=== PATIENT | male | born 1975 | race Caucasian/White ===

== ENCOUNTER 2021-01-12 22:27 | Emergency (ER) | payer BC ==
[2021-01-12] MEDS: Alum Hydroxide/Mag Hydroxide 15 ML, Lidocaine 2% 15 ML PO ONE ×2 (22:56)
[2021-01-12 23:36] VITALS: BP 128/83; PULSE 68
--- NOTE | 2021-01-12 23:37 | EDM.PDOC ---
ED HPI GENERAL MEDICAL PROBLEM - General Chief Complaint: Chest Pain Stated Complaint: chest pain/Epigastric pain Time Seen by Provider: 01/12/21 22:45 Source of Information: Reports: Patient, Family History Limitations: Reports: No Limitations - History of Present Illness INITIAL COMMENTS - FREE TEXT/NARRATIVE: Patient presented to the ED because of ches pain and epigastric pain which started at 0900 today. The pain is sharp and burning,5/10. there is no nausea or vomiting. Denies any fever, chills, cough or cold symptoms. 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 Middle Chest Pain Score (Numeric/FACES): 5 - Related Data Allergies Allergy/AdvReac Type Severity Reaction Status Date / Time No Known Allergies Allergy Verified 01/12/21 22:52 Home Meds: Home Meds Citalopram [Citalopram HBr] 20 mg PO DAILY 08/28/14 [History] Calcium Carb/Magnesium Hydrox [Rolaids Chewable Tablet] 1 each PO ASDIRECTED PRN 07/01/15 [History] Calcium Carbonate/Vitamin D3 [Calcium 600 + D Tablet] 1 each PO DAILY 07/01/15 [History] Multivitamin [Multivitamins] 1 each PO DAILY 07/01/15 [History] Vitamin B Complex 1 each PO DAILY 07/01/15 [History] Past Medical History Other Musculoskeletal History: FX TIBIA ET FIBULA 08/2014 Psychiatric History: Reports: Depression Other Dermatologic History: INFECTED INCISIONAL AREA OF LEFT LEG. - Past Surgical History Other Musculoskeletal Surgeries/Procedures:: PLATES ET SCREWS Social & Family History - Tobacco Use Tobacco Use Status *Q: Current Every Day Tobacco User Years of Tobacco use: 30 Packs/Tins Daily: 0.5 - Caffeine Use Caffeine Use: Reports: Coffee, Soda - Recreational Drug Use Recreational Drug Use: No ED ROS GENERAL - Review of Systems Review Of Systems: See Below Constitutional: Reports: No Symptoms HEENT: Reports: No Symptoms Respiratory: Reports: No Symptoms Cardiovascular: Reports: Chest Pain Endocrine: Reports: No Symptoms GI/Abdominal: Reports: Abdominal Pain : Reports: No Symptoms Musculoskeletal: Reports: No Symptoms Skin: Reports: No Symptoms Neurological: Reports: No Symptoms Psychiatric: Reports: No Symptoms ED EXAM, GI/ABD - Physical Exam Exam: See Below Exam Limited By: No Limitations General Appearance: Alert, No Apparent Distress Ears: Normal External Exam, Normal Canal Nose: Normal Inspection, Normal Mucosa, No Blood Throat/Mouth: Normal Inspection, Normal Lips Head: Atraumatic, Normocephalic Neck: Normal Inspection, Supple, Non-Tender, Full Range of Motion Respiratory/Chest: No Respiratory Distress, Lungs Clear, Normal Breath Sounds, No Accessory Muscle Use, Chest Non-Tender Cardiovascular: Normal Peripheral Pulses, Regular Rate, Rhythm, No Edema, No Gallop, No JVD, No Murmur, No Rub GI/Abdominal Exam: Normal Bowel Sounds, Soft, No Organomegaly, No Distention, No Abnormal Bruit, No Mass, Other (epigastric tenderness) Back Exam: Normal Inspection, Full Range of Motion Neurological: Alert, Oriented, CN II-XII Intact, Normal Cognition, Normal Gait, Normal Reflexes #1 Interpretation EKG Date: 01/12/21 Time: 22:30 Rhythm: NSR Rate (Beats/Min): 64 [place]: Normal P-Wave: Present QRS: Normal ST-T: Normal QT: Normal Comparison: NA - No Prior EKG EKG Interpretation Comments: NSR No acute changes Course - Vital Signs Text/Narrative:: Labs/EKG result was reviewed with andreient and his Last Recorded V/S: Last Vital Signs Temp 36.7 C 01/12/21 22:40 Pulse 68 01/12/21 23:11 Resp 18 01/12/21 22:41 BP 128/83 01/12/21 23:11 Pulse Ox 97 01/12/21 22:41 - Orders/Labs/Meds Orders: Active Orders 24 hr Category Date Time Status EKG 12 Lead [EK] Routine Ther 01/12/21 22:54 Ordered Labs: Laboratory Tests 01/12/21 01/12/21 01/12/21 Range/Units 23:00 23:00 23:00 WBC 6.9 (3.2-10.1) x10-3/uL RBC 4.35 (3.90-5.90) x10(6)uL Hgb 13.8 (12.9-17.7) g/dL Hct 40.2 (38.3-50.1) % MCV 92.3 (80.8-98.7) fL MCH 31.6 (27.0-33.3) pg MCHC 34.3 (28.7-35.3) g/dL RDW 13.1 (12.4-15.0) % Plt Count 157 (117-477) x10(3)uL MPV 9.9 (6.7-11.0) fL Neut % (Auto) 56.0 (40.3-71.8) % Lymph % (Auto) 31.5 (15.8-45.3) % [place] % (Auto) 8.2 (5.5-15.2) % Eos % (Auto) 3.5 (0.1-6.8) % Baso % (Auto) 0.8 (0.3-3.8) % Neut # (Auto) 3.9 (1.7-6.9) x10-3/uL Lymph # (Auto) 2.2 (0.5-4.5) x10-3/uL [place] # (Auto) 0.6 (0.0-1.2) x10-3/uL Eos # (Auto) 0.2 (0.0-0.6) x10-3/uL Baso # (Auto) 0.1 (0.0-0.3) x10-3/uL Sodium 138 (135-145) mmol/L Potassium 3.8 (3.5-5.3) mmol/L Chloride 101 (100-110) mmol/L Carbon Dioxide 27 (21-32) mmol/L BUN 21 H (7-18) mg/dL Creatinine 1.0 (0.70-1.30) mg/dL Est Cr Clr Drug Dosing TNP Estimated GFR (MDRD) > 60 (>60) BUN/Creatinine Ratio 21.0 H (9-20) Glucose 132 H (80-116) mg/dL Calcium 7.9 L (8.6-10.2) mg/dL Total Bilirubin 0.3 (0.1-1.3) mg/dL AST 20 (5-25) IU/L ALT 34 (12-36) U/L Alkaline Phosphatase 76 (56-112) IU/L Troponin I < 4.0 L (4.0-60.3) pg/mL Total Protein 6.7 (6.0-8.0) g/dL Albumin 3.2 L (3.5-5.2) g/dL Globulin 3.5 g/dL Albumin/Globulin Ratio 0.9 Meds: Medications Discontinued Medications Generic Name Dose Route Start Last Admin Trade Name Keisha PRN Reason Stop Dose Admin Al Hydroxide/Mg Hydroxide 15 0 ml 01/12/21 22:51 01/12/21 22:56 ml/ Lidocaine HCl 15 ml PO 01/12/21 22:52 30 ml ONETIME ONE Administration Departure - Departure Time of Disposition: 23:35 Disposition: Home, Self-Care 01 Condition: Good Clinical Impression: Atypical chest pain, GERD (gastroesophageal reflux disease) - Discharge Information Instructions: Nonspecific Chest Pain, Adult, [id number], Gastroesophageal Reflux Disease, Adult, [id number] Referrals: PCP,None [Primary Care Provider] - Forms: ED Department Discharge Additional Instructions: Please read discharge instructions on GERD/Acid Reflux Take your prilosec/omeprazole daily Follow up as needed Sepsis Event Note (ED) - Evaluation Sepsis Screening Result: No Definite Risk - Focused Exam Vital Signs: Vital Signs Temp Pulse Resp BP Pulse Ox 01/12/21 23:11 68 128/83 01/12/21 22:51 70 124/82 01/12/21 22:41 71 18 133/94 H 97 01/12/21 22:40 36.7 C 61 18 131/82 97 - My Orders Last 24 Hours: My Active Orders 01/12/21 22:54 EKG 12 Lead [EK] Routine - Assessment/Plan Last 24 Hours: My Active Orders 01/12/21 22:54 EKG 12 Lead [EK] Routine
== END 2021-01-12 23:42 | disposition home or self-care (01) ==
LOC: FB.ED 22:27
DX: K21.9 Gastro-esophageal reflux disease without esophagitis (principal); Z72.0 Tobacco use
CPT/HCPCS: 36415; 80053; 84484; 85025; 93005; 99285; A9270